=== PATIENT | female | born 1965 | race Caucasian/White ===

== ENCOUNTER 2018-05-06 08:32 | Day surgery (SDC) | payer OTHER, SELFPAY ==
[2018-05-06 08:50] VITALS: BP 149/99; PULSE 78; RESP 16; TEMP 37.1; O2SAT 99
[2018-05-06] MEDS: SODIUM CHLORIDE 0.9% 1,000 ML 200 ML IV (09:14)
--- NOTE | 2018-05-06 09:24 | PM.HP.1 ---
History of Present Illness Date Patient Seen: 05/06/18 Time Patient Seen: 09:24 Chief complaint: [id number] SCREENING COLONOSCOPY Narrative: Very pleasant and healthy 52-year-old lady who presents for screening colonoscopy. She denies any problems or symptoms related to the function of her GI tract. She reports she has a colonoscopy prior to advance program. Patient History Surgical History History of third molar tooth extraction Family & Social History Family History: Reviewed 05/06/18 by Audrey Chanel MD Social History: household members spouse Meds Home Medications Medication Instructions Recorded Confirmed Type clobetasol 1 roel TOPICAL BID #30 gm 09/23/17 Rx albuterol sulfate 1.25 mg INHALATION Q4H PRN 05/06/18 05/06/18 History Allergies Allergy/AdvReac Type Severity Reaction Status Date / Time moxifloxacin [From AVELOX] Allergy Unknown HIVES Verified 05/06/18 08:48 Review of Systems Review of Systems All systems reviewed & are unremarkable except as noted in HPI and below Exam Vital Signs (past 8 hours): - 05/06/18 08:50 Temperature 98.7 F Pulse Rate 78 Respiratory Rate 16 Blood Pressure 149/99 H Pulse Oximetry 99 Oxygen Delivery Method Room Air Narrative Exam Narrative: Very pleasant, well-nourished, well-developed lady in no distress HEENT: Normocephalic and atraumatic, pupils equal round reactive to light accommodation with anicteric sclera Lungs: Clear to auscultation bilaterally Heart: Regular rate and rhythm without murmur or gallop Abdomen: Soft, nontender, active bowel sounds Extremities: Warm and well perfused without edema Assessment & Plan Plan: Assessment/Plan Narrative: Healthy 52-year-old lady who is only significant medical issue is asthma. She does report that she is having to use her inhaler quite a bit but she is not having any shortness of breath today. We discussed the risks and benefits of colonoscopy the patient expressed desire to complete the procedure today.
[2018-05-06] MEDS: MIDAZOLAM 5 MG/5 ML VIAL IV (09:40)
[2018-05-06] MEDS: fentaNYL 250 MCG/5 ML INJ IV (09:42)
--- NOTE | 2018-05-06 09:47 | PM.OP.1 ---
Operative Date/Time/Diagnoses Date of procedure: 05/06/18 Time of procedure: 09:47 Pre-op diagnosis: Screening Post-op diagnosis: same Procedure & Clinicians Procedure: Colonoscopy to the cecum Same procedure as scheduled: Yes Indications: No prior colonoscopy Surgeon: Audrey Chanel Click Yes if Unassisted: Yes Anesthesia Type: Sedation (Versed 7 mg; fentanyl 250 mcg) Operative Notes Findings: 1. Excellent prep 2. No polyps or mass lesions 3. No AV malformations 4. Very minimal diverticulosis limited to the sigmoid region. Just a few very small pockets seen 5. Grade 2 internal hemorrhoids 6. Essentially normal colonoscopy for age Closure Type: not applicable Specimen(s): none sent Procedure in detail: After obtaining informed consent, the patient was brought to the GI suite and placed in the left lateral decubitus position on the examination table. After placement of appropriate monitors, the patient was given incremental doses of Versed and Fentanyl until an appropriate level of sedation was achieved. A time out was held per SCOAP protocol. A digital rectal examination was performed and did not reveal any masses or obstructing lesions. The colonoscope was gently passed into the patient's anus and the entire colon navigated to the level of the cecum with minimal difficulty. Once in the cecum, the scope was withdrawn being sure to go before and beyond all mucosal folds and prominences and get an excellent examination. The findings are noted above. At the level of the rectal vault, the scope was retroflexed and the internal anal canal was examined. The scope was straightened and air aspirated from the colon. The instrument was removed from the patient's body and the procedure was concluded. The patient was allowed to awaken from sedation without difficulty and taken to the post-anesthesia care unit in good condition. Total sedation time 18 min Total withdrawal time 9 min and 21 sec Complications: none Condition: stable Disposition: PACU Plan for aftercare: 1. Discharged home 2. Plan for next colonoscopy in 10 years or as clinically indicated
[2018-05-06 09:52] VITALS: BP 130/81; PULSE 87; RESP 12; TEMP 36.6; O2SAT 97
[2018-05-06 09:57] VITALS: BP 111/75; PULSE 85; RESP 18; O2SAT 99
[2018-05-06 10:02] VITALS: BP 113/74; PULSE 84; RESP 18; O2SAT 100
[2018-05-06 10:07] VITALS: BP 126/80; PULSE 90; RESP 16; O2SAT 100
[2018-05-06 10:12] VITALS: BP 122/83; PULSE 85; RESP 18; TEMP 36.6; O2SAT 100
== END 2018-05-06 10:36 | disposition home or self-care (01) ==
PROVIDERS: Family Provider Obstetrics & Gynecology; PCP Family Medicine; Visit Provider Surgery
PROC: 0DJD8ZZ Inspection of Lower Intestinal Tract, Via Natural or Artificial Opening Endoscopic (ICD-10-PCS; CPT 45378; principal; 2018-05-06 09:45)
DX: Z12.11 Encounter for screening for malignant neoplasm of colon (principal); J45.909 Unspecified asthma, uncomplicated; K57.30 Diverticulosis of large intestine without perforation or abscess without bleeding; K64.1 Second degree hemorrhoids
CPT/HCPCS: 45378; 99152; J2250; J3010

== ENCOUNTER → 2018-09-27 12:33 | Outpatient (CLI) | payer OTHER, SELFPAY ==
--- NOTE | 2018-09-27 | DI.MG.S_ITS ---
BILATERAL DIGITAL SCREENING MAMMOGRAM 3D/2D WITH CAD: 09/27/2018 CLINICAL: Routine screening. Family history of breast cancer. Comparison is made to exams dated: 09/23/2017 mammogram, 09/16/2016 mammogram, and 06/27/2015 mammogram - [facility]. The tissue of both breasts is extremely dense, which lowers the sensitivity of mammography. Current study was also evaluated with a Computer Aided Detection (CAD) system. There are benign calcifications in both breasts. No significant masses, calcifications, or other findings are seen in either breast. There has been no significant interval change. IMPRESSION: There is no mammographic evidence of malignancy. A 1 year screening mammogram is recommended. This exam was interpreted at Station ID: [id number]. NOTE: For mammograms, a report in lay terms will be sent to the patient. Approximately 15% of breast malignancies will not be visualized mammographically. In the management of a palpable breast mass, a negative mammogram must not discourage biopsy of a clinically suspicious lesion. Electronically Signed By: Kenyon holguin/billy:09/27/2018 15:58:14 copy to: Paulino Zepeda letter sent: Normal Exam ACR BI-RADS Category 2: Benign Finding(s) 3342F
== END ==
PROVIDERS: Family Provider Obstetrics & Gynecology; PCP Family Medicine; Visit Provider Obstetrics & Gynecology
DX: Z12.31 Encounter for screening mammogram for malignant neoplasm of breast (principal); Z80.3 Family history of malignant neoplasm of breast
CPT/HCPCS: 77063; 77067

== ENCOUNTER → 2020-01-04 08:17 | Outpatient (CLI) | payer OTHER, SELFPAY ==
--- NOTE | 2020-01-04 | DI.MG.S_ITS ---
BILATERAL DIGITAL SCREENING MAMMOGRAM 3D/2D WITH CAD: 01/04/2020 CLINICAL: Routine screening. Family history of breast cancer. Comparison is made to exams dated: 09/27/2018 mammogram, 09/23/2017 mammogram, 09/16/2016 mammogram, 06/27/2015 mammogram, 06/26/2014 mammogram, and 12/29/2012 mammogram - [facility]. The tissue of both breasts is extremely dense, which lowers the sensitivity of mammography. Current study was also evaluated with a Computer Aided Detection (CAD) system. There are benign calcifications in both breasts. No significant masses, calcifications, or other findings are seen in either breast. There has been no significant interval change. IMPRESSION: There is no mammographic evidence of malignancy. A 1 year screening mammogram is recommended. This exam was interpreted at Station ID: [id number]. NOTE: For mammograms, a report in lay terms will be sent to the patient. Approximately 15% of breast malignancies will not be visualized mammographically. In the management of a palpable breast mass, a negative mammogram must not discourage biopsy of a clinically suspicious lesion. Electronically Signed By: Germán terry/billy:01/04/2020 10:45:26 copy to: Krista Marsh letter sent: Normal Exam ACR BI-RADS Category 2: Benign Finding(s) 3342F
== END ==
PROVIDERS: Family Provider Obstetrics & Gynecology; PCP Family Medicine; Referring Provider Obstetrics & Gynecology; Visit Provider Family Medicine
DX: Z12.31 Encounter for screening mammogram for malignant neoplasm of breast (principal); Z80.3 Family history of malignant neoplasm of breast
CPT/HCPCS: 77063; 77067

== ENCOUNTER → 2021-01-07 10:06 | Outpatient (CLI) | payer OTHER, SELFPAY ==
--- NOTE | 2021-01-07 10:09 | DI.MG.S_ITS ---
BILATERAL DIGITAL SCREENING MAMMOGRAM 3D/2D WITH CAD: 01/07/2021 CLINICAL: Routine screening. Family history of breast cancer. Comparison is made to exams dated: 01/04/2020 mammogram, 09/27/2018 mammogram, and 09/23/2017 mammogram - [facility]. The tissue of both breasts is extremely dense, which lowers the sensitivity of mammography. Current study was also evaluated with a Computer Aided Detection (CAD) system. There is possible architectural distortion in the right breast posterior depth central to the nipple seen on the craniocaudal view only. No other significant masses, calcifications, or other findings are seen in either breast. IMPRESSION: INCOMPLETE: NEEDS ADDITIONAL IMAGING EVALUATION The possible architectural distortion in the right breast is indeterminate. Additional views with possible ultrasound are recommended. This exam was interpreted at Station ID: [id number]. NOTE: For mammograms, a report in lay terms will be sent to the patient. Approximately 15% of breast malignancies will not be visualized mammographically. In the management of a palpable breast mass, a negative mammogram must not discourage biopsy of a clinically suspicious lesion. Electronically Signed By: Mateo Gaines M.D. jr/:01/07/2021 12:24:27 copy to: Krista Marsh letter sent: Additional Imaging Needed ACR BI-RADS Category 0: Incomplete 3340F
== END ==
PROVIDERS: Family Provider Obstetrics & Gynecology; PCP Physician Assistant Medical; Referring Provider Physician Assistant Medical; Visit Provider Physician Assistant Medical
DX: Z12.31 Encounter for screening mammogram for malignant neoplasm of breast (principal); Z80.3 Family history of malignant neoplasm of breast
CPT/HCPCS: 77063; 77067

== ENCOUNTER → 2021-01-25 09:14 | Outpatient (CLI) | payer OTHER, SELFPAY ==
--- NOTE | 2021-01-25 09:15 | DI.MG.S_ITS ---
UNILATERAL RIGHT DIGITAL DIAGNOSTIC MAMMOGRAM 3D/2D WITH ADDITIONAL VIEWS: 01/25/2021 CLINICAL: Additional evaluation requested from prior study. Comparison is made to exams dated: 01/07/2021 mammogram, 01/04/2020 mammogram, and 09/27/2018 mammogram - [facility]. The tissue of right breast is extremely dense, which lowers the sensitivity of mammography. The previously described possible architectural distortion in the right breast posterior depth central to the nipple seen on the craniocaudal view only is no longer seen and is consistent with summation artifact. No other significant masses or calcifications are seen in the breast. IMPRESSION: BENIGN The previously described possible architectural distortion in the right breast is no longer seen and is consistent with summation artifact. There is no mammographic evidence of malignancy. A 1 year screening mammogram is recommended. Findings and recommendations were conveyed to the patient during today's evaluation. This exam was interpreted at Station ID: [id number]. NOTE: For mammograms, a report in lay terms will be sent to the patient. Approximately 15% of breast malignancies will not be visualized mammographically. In the management of a palpable breast mass, a negative mammogram must not discourage biopsy of a clinically suspicious lesion. Electronically Signed By: Kenyon Montes M.D. aty/:01/25/2021 09:59:41 copy to: Krista Marsh letter sent: Normal Exam ACR BI-RADS Category 2: Benign Finding(s) 3342F
== END ==
PROVIDERS: Family Provider Obstetrics & Gynecology; PCP Physician Assistant Medical; Referring Provider Physician Assistant Medical; Visit Provider Physician Assistant Medical
DX: R92.8 Other abnormal and inconclusive findings on diagnostic imaging of breast (principal)
CPT/HCPCS: 77065; G0279

== ENCOUNTER → 2022-01-17 16:56 | Outpatient (CLI) | payer OTHER, SELFPAY ==
--- NOTE | 2022-01-17 16:57 | DI.MG.S_ITS ---
BILATERAL DIGITAL SCREENING MAMMOGRAM 3D/2D WITH CAD: 01/17/2022 CLINICAL: Routine screening. Family history of breast cancer. Comparison is made to exams dated: 01/07/2021 mammogram, 01/25/2021 mammogram, 01/04/2020 mammogram, and 09/27/2018 mammogram - [facility]. The tissue of both breasts is extremely dense, which lowers the sensitivity of mammography. Current study was also evaluated with a Computer Aided Detection (CAD) system. No significant masses, calcifications, or other findings are seen in either breast. There has been no significant interval change. IMPRESSION: NEGATIVE There is no mammographic evidence of malignancy. A 1 year screening mammogram is recommended. Based on Tyrer-Cuzick model (a risk assessment model), the patient's lifetime risk is 45.2% and her 10 year risk is 16.9%. If a patient has an elevated risk, a more comprehensive evaluation should be considered and/or a referral to a genetic counselor. The [place] [employer], [employer], and NCCN Guidelines advise the consideration of Breast MRI as an adjunct to screening mammography in patients whose Lifetime risk to develop breast cancer is 20% or higher. This exam was interpreted at Station ID: [id number]. NOTE: For mammograms, a report in lay terms will be sent to the patient. Approximately 15% of breast malignancies will not be visualized mammographically. In the management of a palpable breast mass, a negative mammogram must not discourage biopsy of a clinically suspicious lesion. Electronically Signed By: Garett raellano/billy:01/20/2022 08:39:05 copy to: Krista Marsh letter sent: Normal Exam ACR BI-RADS Category 1: Negative 3341F
== END ==
PROVIDERS: Family Provider Obstetrics & Gynecology; PCP Physician Assistant Medical; Referring Provider Obstetrics & Gynecology; Visit Provider Obstetrics & Gynecology
DX: Z12.31 Encounter for screening mammogram for malignant neoplasm of breast (principal); Z80.3 Family history of malignant neoplasm of breast
CPT/HCPCS: 77063; 77067

== ENCOUNTER → 2022-09-05 08:55 | Outpatient (CLI) | payer OTHER, SELFPAY ==
--- NOTE | 2022-09-05 | DI.CT.S_ITS ---
PROCEDURE: CT SOFT TISSUE NECK WO/W CON INDICATIONS: PAROTITIS/POSS STONES TECHNIQUE: Before and after the administration of intravenous contrast, 2.0 mm axial sections acquired through the neck and down to the sole. Additional 2.0 mm coronal and sagittal reformats were generated of the contrast enhanced images. For radiation dose reduction, the following was used: automated exposure control. COMPARISON: None. FINDINGS: Image quality: Excellent. Lymph nodes: No enlarged lymph nodes seen throughout the neck. Vessels: Visualized vasculature appears patent. Neck spaces: The oropharynx, nasopharynx, and pharynx demonstrate no mucosal lesions. The vocal cords, false vocal cords, pyriform sinuses, epiglottis, vallecula, and tongue base all appear normal. Extramucosal spaces appear unremarkable. Glands: On precontrast imaging, no stones can be seen involving the expected courses of the parotid glands or the submandibular glands. No charmaine stones are seen elsewhere. Note is made that the right parotid duct is slightly more prominent than the left parotid on CT, as seen on series 2 images 21 and 22. No cause of obstruction can be seen. The parotid and submandibular glands appear normal on postcontrast imaging, without masses or abnormal enhancement. No abnormal edema can be seen within the salivary glands or surrounding the salivary glands. The thyroid gland demonstrates no significant CT abnormality. Miscellaneous: Visualized lungs appear clear. Superficial soft tissues appear normal. Bones: No suspicious bony lesions. There is moderate to prominent abnormal soft tissue material seen within the maxillary sinuses, including areas of high density. Moderate mucosal thickening is seen within the ethmoid air cells. Mild rightward nasal septal deviation is incidentally noted. No abnormal fluid is seen within the mastoid air cells. [id number] cervical spine degenerative change can be seen. IMPRESSION: Negative for salivary gland stones. The right parotid duct is slightly more prominent than the left parotid duct. This may be on the basis of partial obstruction, although no cause of obstruction is seen on these images. Normal appearing salivary glands, without masses or abnormal enhancement. Paranasal sinus disease is seen, which is worst within the maxillary sinuses. High-density material can be seen, which may be related to dense secretions or fungal infection. Dictated by: Oswaldo Robb M.D. on 09/05/2022 at 10:02 Approved by: Oswaldo Robb M.D. on 09/05/2022 at 10:08
== END ==
PROVIDERS: Family Provider Obstetrics & Gynecology; PCP Physician Assistant Medical; Referring Provider Otolaryngology; Visit Provider Otolaryngology
DX: K11.20 Sialoadenitis, unspecified (principal); J32.8 Other chronic sinusitis
CPT/HCPCS: 70492; Q9967

== ENCOUNTER → 2023-03-02 07:55 | Outpatient (CLI) | payer OTHER, SELFPAY ==
--- NOTE | 2023-03-02 | DI.MG.S_ITS ---
BILATERAL DIGITAL SCREENING MAMMOGRAM 3D/2D WITH CAD: 03/02/2023 CLINICAL: Routine screening. Family history of breast cancer. Comparison is made to exams dated: 01/17/2022 mammogram, 01/07/2021 mammogram, and 01/04/2020 mammogram - [facility]. Both breasts are heterogeneously dense, which may obscure small masses (category c / 51-75% glandular tissue). Current study was also evaluated with a Computer Aided Detection (CAD) system. No significant masses, calcifications, or other findings are seen in either breast. There has been no significant interval change. IMPRESSION: NEGATIVE There is no mammographic evidence of malignancy. A 1 year screening mammogram is recommended. Based on Tyrer-Cuzick model (a risk assessment model), the patient's lifetime risk is 32.2% and her 10 year risk is 12.0%. If a patient has an elevated risk, a more comprehensive evaluation should be considered and/or a referral to a genetic counselor. The [place] [employer], [employer], and NCCN Guidelines advise the consideration of Breast MRI as an adjunct to screening mammography in patients whose Lifetime risk to develop breast cancer is 20% or higher. This exam was interpreted at Station ID: [id number]. NOTE: For mammograms, a report in lay terms will be sent to the patient. Approximately 15% of breast malignancies will not be visualized mammographically. In the management of a palpable breast mass, a negative mammogram must not discourage biopsy of a clinically suspicious lesion. Electronically Signed By: Mona york/billy:03/02/2023 10:03:28 copy to: Krista Marsh letter sent: Normal Exam ACR BI-RADS Category 1: Negative 3341F
== END ==
PROVIDERS: Family Provider Obstetrics & Gynecology; PCP Physician Assistant Medical; Referring Provider Physician Assistant Medical; Visit Provider Physician Assistant Medical
DX: Z12.31 Encounter for screening mammogram for malignant neoplasm of breast (principal); Z80.3 Family history of malignant neoplasm of breast
CPT/HCPCS: 77063; 77067

== ENCOUNTER → 2024-10-07 | Outpatient (CLI) | payer OTHER, SELFPAY ==
--- NOTE | 2024-10-07 13:39 | DI.MG.S_ITS ---
MM screening mammo BI: 10/07/2024. BI-RADS: 1 CLINICAL: 58-year old female for bilateral screening mammogram. Tyrer-Cuzick lifetime risk of 30.6%. Current reported family history of breast cancer: mother, sister, maternal aunt and maternal aunt's daughter. The patient reports testing negative for BRCA gene mutation. PRIOR EXAMS 09/30/2023, 03/02/2023, 01/17/2022, 01/25/2021, 01/07/2021, 01/04/2020, 09/27/2018, 09/23/2017, 09/16/2016, 06/27/2015. MAMMOGRAPHY TECHNIQUE: 2D and 3D (tomosynthesis) digital mammographic views obtained, with additional images as needed for full coverage. Current study was also evaluated with a Computer Aided Detection (CAD) system. DENSITY C. The breasts are heterogeneously dense, which may obscure small masses. MAMMOGRAPHY FINDINGS Bilateral: No suspicious mass, asymmetry, microcalcification, or other abnormality seen. IMPRESSION: * No evidence of malignancy. RECOMMENDATIONS Bilateral * According to the Tyrer-Cuzick Risk Assessment Model, based on the information provided your patient has a greater than 20% lifetime risk for developing breast cancer. Consider supplemental screening with breast MRI and participation in a high risk screening program. * Annual screening mammography. OVERALL ASSESSMENT CATEGORY BI-RADS-1: Negative. The [employer] recommends annual screening mammography beginning at age 40 for women with average risk of breast cancer. ELECTRONICALLY SIGNED: Leigh Townsend M.D. on 10/09/2024 at 04:20:54 PM PT Interpreting Station ID: [id number]
== END ==
PROVIDERS: Family Provider Obstetrics & Gynecology; PCP Registered Nurse; Referring Provider Registered Nurse; Visit Provider Registered Nurse
DX: Z12.31 Encounter for screening mammogram for malignant neoplasm of breast (principal); Z80.3 Family history of malignant neoplasm of breast; R92.333 Mammographic heterogeneous density, bilateral breasts
CPT/HCPCS: 77063; 77067